=== PATIENT | female | born 1955 ===

== ENCOUNTER 2020-06-16 23:29 | Inpatient (IN) ==
[2020-06-17] MEDS ORDERED: methylPREDNISolone 125 mg 2 ML VIAL IV ONE (00:08)
[2020-06-17] MEDS ORDERED: Albuterol/Ipratropium NEB.SOL (2.5/0.5 MG) 3 ML NEB.SOLN INH ONE (00:08)
[2020-06-17] MEDS ORDERED: Albuterol/Ipratropium NEB.SOL (2.5/0.5 MG) 3 ML NEB.SOLN ONE (00:09)
[2020-06-17] MEDS ORDERED: methylPREDNISolone 125 mg 2 ML VIAL ONE (00:09)
[2020-06-17 00:42] LABS: ABS Basophils 0.1 10^3/ul (0-0.2); ABS Eosinophils 0.1 10^3/ul (0-0.6); ABS Monocytes 1.2 10^3/ul (0-0.8); ABS Neutrophils 19.4 10^3/ul (1.5-7.7); Eosinophil % 0.4 %; Hematocrit 21 % (35-47); Hemoglobin 6.6 g/dL (12.0-16.0); Lymphocyte % 12.5 %; Mean Corpuscular HGB Conc 32 g/dL (31-36); Mean Corpuscular Hemoglobin 28 pg (27-31); Mean Corpuscular Volume 90 fL (80-97); Mean Platelet Volume 7.6 fL (7.4-10.4); Nucleated Red Blood Cells % 0.1; Platelet Count 359 10^3/uL (150-450); Red Blood Count 2.34 10^6 /uL (3.70-4.87); Red Cell Distribution Width 15 % (10-15); White Blood Count 23.8 10^3/uL (3.5-10.8)
[2020-06-17 00:56] LABS: INR 1.16 (0.82-1.09)
[2020-06-17 01:01] LABS: Albumin 3.6 g/dL (3.2-5.2); Albumin/Globulin Ratio 1.6 (1-3); BUN/Creatinine Ratio 31.6 (8-20); C Reactive Protein 15.26 mg/L (<8.01); Calcium 8.4 mg/dL (8.6-10.3); EGFR African American 68.5 (>60); EGFR Non-African American 56.6 (>60); Globulin 2.2 g/dL (2-4); Potassium 3.8 mmol/L (3.5-5.0); Total Bilirubin 0.2 mg/dL (0.2-1.0); Total Protein 5.8 g/dL (6.4-8.9)
[2020-06-17 01:02] LABS: Troponin I 0.01 ng/mL (<0.03)
[2020-06-17] MEDS ORDERED: Pantoprazole VIAL 40 MG VIAL IV ONE (01:13)
[2020-06-17] MEDS ORDERED: NS 0.9% 1000 ml BAG 1,000 ML IV ONE (01:13)
[2020-06-17 01:35] LABS: Hematocrit 22 % (35-47); Hemoglobin 7.1 g/dL (12.0-16.0); Mean Corpuscular HGB Conc 33 g/dL (31-36); Mean Corpuscular Hemoglobin 30 pg (27-31); Mean Corpuscular Volume 90 fL (80-97); Mean Platelet Volume 7.7 fL (7.4-10.4); Platelet Count 401 10^3/uL (150-450); Red Blood Count 2.38 10^6 /uL (3.70-4.87); Red Cell Distribution Width 15 % (10-15); White Blood Count 28.2 10^3/uL (3.5-10.8)
[2020-06-17 01:36] LABS: ABS Basophils 0.1 10^3/ul (0-0.2); ABS Eosinophils 0.1 10^3/ul (0-0.6); ABS Lymphocytes 4.3 10^3/ul (1.0-4.8); ABS Monocytes 1.4 10^3/ul (0-0.8); ABS Neutrophils 22.3 10^3/ul (1.5-7.7); Eosinophil % 0.3 %; Lymphocyte % 15.1 %
[2020-06-17] MEDS ORDERED: Albuterol/Ipratropium NEB.SOL (2.5/0.5 MG) 3 ML NEB.SOLN INH PRN (02:02)
[2020-06-17] MEDS ORDERED: Piperacillin/Tazobac ADVAN 3.375 GM in NS 0.9% 100 ml BAG 100 ML IVPB ONE (02:06)
[2020-06-17] MEDS ORDERED: Piperacillin/Tazobac ADVAN 3.375 GM in NS 0.9% 100 ml BAG 100 ML IV ONE (02:06)
[2020-06-17] MEDS ORDERED: NS 0.9% IV ONE (02:45)
[2020-06-17] MEDS ORDERED: NS 0.9% IV SCH (02:45)
[2020-06-17] MEDS ORDERED: Zosyn per Pharmacy NOTE FOLLOW UP SCH (03:00)
[2020-06-17 07:44] LABS: ABS Lymphocytes 1.1 10^3/ul (1.0-4.8); ABS Monocytes 0.2 10^3/ul (0-0.8); ABS Neutrophils 15.3 10^3/ul (1.5-7.7); Hematocrit 24 % (35-47); Lymphocyte % 6.4 %; Mean Corpuscular HGB Conc 34 g/dL (31-36); Mean Corpuscular Hemoglobin 30 pg (27-31); Mean Corpuscular Volume 89 fL (80-97); Mean Platelet Volume 7.4 fL (7.4-10.4); Platelet Count 315 10^3/uL (150-450); Red Blood Count 2.68 10^6 /uL (3.70-4.87); Red Cell Distribution Width 14 % (10-15); White Blood Count 16.5 10^3/uL (3.5-10.8)
[2020-06-17 08:03] LABS: BUN/Creatinine Ratio 35.3 (8-20); Calcium 8.8 mg/dL (8.6-10.3); EGFR African American 80.7 (>60); EGFR Non-African American 66.7 (>60); Potassium 4.3 mmol/L (3.5-5.0)
[2020-06-17] MEDS ORDERED: Iodixanol (CONTRAST) 320 MG/ML 100 ML SDV IV ONE (08:04)
[2020-06-17] MEDS ORDERED: ZOSYN 3.375 GM Q8H per EXTENDED INFUSION IV SCH (08:30)
[2020-06-17] MEDS ORDERED: Pantoprazole VIAL 40 MG VIAL IV SCH (09:00)
[2020-06-17 15:31] LABS: Hematocrit 27 % (35-47); Hemoglobin 8.7 g/dL (12.0-16.0)
[2020-06-17 15:36] VITALS: BP 142/56
== END 2020-06-17 16:25 | disposition short-term general hospital (02) | DRG 812 ==
LOC: ED 23:29 → MEDTELE 06-17 02:50
PROVIDERS: ADMIT Internal Medicine; ATTEND Internal Medicine